=== PATIENT | female | born 1955 | race Caucasian/White ===

== ENCOUNTER → 2017-04-28 | Outpatient (CLI) | payer OTHER ==
[~2017-04-28] MED LIST: ACTOS PO; LIPITOR PO; REGLAN PO; ZYRTEC PO
--- NOTE | ~2017-04-28 | MY29 ---
[facility] A Service of [facility] RADIOLOGY TEXT RESULTS PATIENT: UDAY JORGE LOCATION: [facility] : 57 UNIT #: [id number] AGE: [address]: Hilda Rey APRN SEX: F ORDER DR: [id number] [facility] [address] [place], [place] [address] [id number] O MR#: [id number] Acc #: [id number] NAME: UDAY JORGE : 1955 SEX: F STUDY DATE/TIME: 04/28/2017 14:36 UNIT: [facility] ROOM: STUDY DESCRIPTION: [facility] SCREENING W/ CAD BILAT Attending Physician: Hilda Rey A.P.R.N. Ordering Physician: Hilda Rey A.P.R.N. Primary Care Physician: Hilda Rey A.P.R.N. MEDICAL IMAGING REPORT This report is preliminary unless electronic signature is present EXAM Digital screening mammogram, 04/28/2017 HISTORY 61-year-old woman, no risk elevation. Annual screen. COMPARISON Mammograms date to 06/14/2006, with most recent 04/22/2016. FINDINGS Digital imaging of each breast was completed utilizing screening protocol. Review includes FDA-approved CAD device. Breast parenchyma is fatty replaced. There is no breast mass. There are no interval occurring microcalcifications and no architectural deformity. IMPRESSION Negative mammogram. Annual screening recommended. Patients over the age of 40 are entered into a reminder system with target due date for the next mammogram. A result letter will also be sent to the patient. BIRADS: 1 Negative Dictated by... Jose R Guillaume M.D. THIS IS AN ELECTRONICALLY VERIFIED REPORT Jose R Guillaume M.D. at 04/29/2017 8:10 AM LEIGHA/bethanie TD: 04/28/2017 20:50 [facility] A Service of [facility] RADIOLOGY TEXT RESULTS PATIENT: UDAY JORGE LOCATION: [facility] : 57 UNIT #: [id number] AGE: [address]: Hilda Rey APRN SEX: F ORDER DR: JOB #: [id number] MEDICAL IMAGING REPORT Page 1 of 1 COPY
== END | disposition home or self-care (01) ==
LOC: CWCC 14:23
DX: Z12.31 Encounter for screening mammogram for malignant neoplasm of breast (principal)
CPT/HCPCS: G0202